=== PATIENT | female | born 1960 | race Hispanic/Latino ===

== ENCOUNTER 2017-09-14 08:38 | Emergency (ER) | payer OTHER ==
[~2017-09-14 08:38] MED LIST: CALCIUM 500 +1 EAC5 PO; LOSARTAN POTAS100 M1 PO; METFORMIN HCL750 M1 PO; MONTELUKAST SOD10 M1 PO; SYNTHROID50 MCG PO; VITAMIN B-121000 MC3 PO
--- NOTE | 2017-09-14 12:20 | ED GENERAL ADULT ---
History of Present Illness General Chief Complaint: Shoulder Injury Stated Complaint: L SHOULDER PAIN Source: patient Exam Limitations: no limitations Vital Signs & Intake/Output Vital Signs & Intake/Output Vital Signs Date Time Temp Pulse Resp B/P B/P Pulse O2 O2 Flow FiO2 Mean Ox Delivery Rate 09/14 1601 97.9 87 20 136/64 96 Room Air 09/14 1439 98.0 88 20 180/80 98 Room Air 09/14 1336 98.1 76 18 164/82 98 Room Air Room Air 09/14 1133 98.1 81 16 172/96 98 Room Air Room Air 09/14 0849 98.6 80 18 178/90 98 Room Air Allergies Coded Allergies: Penicillins (Severe, ANAPHYLAXIS 06/26/17) codeine (Severe, HYPOTENSION 06/26/17) oxycodone (DROPS BP LOW - RUSHED TO ER 06/26/17) Reconcile Medications Amlodipine Besylate 5 MG TABLET 1 TAB PO DAILY HEART (Reported) Cyclobenzaprine HCl 10 MG TABLET 1 TAB PO TID PRN pain Ibuprofen 800 MG TABLET 1 TAB PO TID PRN pain Levothyroxine Sodium (Synthroid) 50 MCG TABLET 1 TAB PO DAILY THYROID ( Reported) Losartan Potassium 100 MG TABLET 1 TAB PO DAILY HEART (Reported) Metformin HCl (Metformin HCl ER) 750 MG TAB.ER.24H 1 TAB PO DAILY DM ( Reported) Triage Note: 57 YO FEMALE TO TRIAGE WITH HX OF RA. STATES SHE WAS HAVING L SIDED NECK PAIN SINCE LAST WEEK, STATES SHE WENT TO SEE A MASSAGE THERAPIST WITHOUT ANY SUCCESS. STATES THIS AM SHE WAS ABLE TO MOVE HER NECK D/T THE PAIN. ICE PACK IN [place] FOR COMFORT. Triage Nurses Notes Reviewed? yes Onset: Abrupt Duration: week(s): (1), constant Timing: single episode today Injury Environment: home Severity: moderate, severe Severity Numbers: 9 No Modifying Factors: none LMP (ages 10-50): post menopausal, unknown : No Patient currently breastfeeds: No HPI: 57-year-old female past history of hypertension, hypothyroidism, rheumatoid arthritis presents for evaluation of pain in the left side of her neck. Patient states symptoms started about one week ago and been persistent. Pain is located in the left neck rates in the left shoulder. The pain is much worse with movement. Described as stiffness. There is no trauma or known triggering event. She's been taking naproxen without any improvement. No numbness or tingling no chest pain shortness of breath. Patient reports she has had similar episodes in the past but nothing this severe. She rates pain currently as a 10 out of 10. She presents she is unable to lay back due to pain. No other associated symptoms no rashes no fevers. (Andrzej Palacio) Past History Travel History Traveled to [place] past 21 day No Medical History Any Pertinent Medical History? 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 No (Andrzej Palacio) Review of Systems Review of Systems Constitutional: Reports: no symptoms. EENTM: Reports: no symptoms. Respiratory: Reports: no symptoms. Cardiovascular: Reports: no symptoms. GI: Reports: no symptoms. Genitourinary: Reports: no symptoms. Musculoskeletal: Reports: see HPI, back pain, joint pain, muscle pain, muscle stiffness, neck pain. Skin: Reports: no symptoms. Neurological/Psychological: Reports: no symptoms. Hematologic/Endocrine: Reports: no symptoms. Immunologic/Allergic: Reports: no symptoms. All Other Systems: Reviewed and Negative (Andrzej Palacio) Physical Exam Physical Exam General Appearance: well developed/nourished, no apparent distress, alert, awake , anxious Head: atraumatic, normal appearance Eyes: Bilateral: normal appearance, PERRL, EOMI. Ears, Nose, Throat: normal pharynx, normal ENT inspection, hearing grossly normal Neck: normal inspection, supple, limited range of motion, THERE IS TENDERNESS PALPATION OF THE LEFT-SIDED CERVICAL PARASPINOUS MUSCLES AND LEFT TRAPEZIUS MUSCLE. nO BRUISING SWELLING OR ABRASIONS RANGE OF MOTION OF THE NECK IS REDUCED DUE TO PAIN. NEUROVASCULAR SUPPLY IS INTACT. nO LYMPHADENOPATHY NO SWELLING TO THE NECK Respiratory: normal breath sounds, chest non-tender, no respiratory distress, lungs clear Cardiovascular: regular rate/rhythm, normal peripheral pulses Peripheral Pulses: 2+ radial (R), 2+ radial (L) Gastrointestinal: soft, non-tender Back: normal inspection, normal range of motion, no vertebral tenderness Extremities: normal inspection, normal range of motion, no edema Neurologic/Psych: no motor/sensory deficits, awake, alert, oriented x 3, normal gait Skin: intact, normal color, warm/dry Lymphatic: no anterior cervical khang Core Measures ACS in differential dx? No CVA/TIA Diagnosis: No Sepsis Present: No Sepsis Focused Exam Completed? No (Arthur CRAWFORD,Andrzej) Progress Differential Diagnoses I considered the following diagnoses in my evaluation of the patient: [Muscle spasm, muscle strain, fracture, cervical adenopathy, RA, osteoarthritis] Plan of Care: Patient seen and evaluated. She is here with left-sided neck and shoulder pain. Pain is very reducible with range of motion and palpation. No history of trauma there is no swelling erythema and bruising or abrasions. Vital signs are stable. Patient was medicated initially with Tylenol and cyclobenzaprine. We' ll check a CT scan of the head and neck. Patient still reported significant spasming and stiffness of her neck despite Tylenol and cycle Benzedrine. She was given a milligram of Ativan. She'll be reassessed. Patient is feeling Better after Ativan. She was able to lay down without difficulty. She was resting comfortably sleeping on reevaluation. CT scan does not show any acute findings. Patient will be given obstruction for ibuprofen as cycle Benzedrine. Advised her to rest avoid excessive physical activity. Apply heating pad. 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 Discussed return precautions patient agrees the plan. Diagnostic Imaging: Viewed by Me: CT Scan. Discussed w/RAD: CT Scan. Radiology Impression: PATIENT: FATIMAH SILVA PRESENT AGE: 57 PATIENT ACCOUNT NO: [id number] : 61 LOCATION: [facility] ORDERING PHYSICIAN: Andrzej CRAWFORD SERVICE DATE: 09/14/17 EXAM TYPE: CAT - CT CERV SPINE WO IV CONTRAST; CT HEAD WO IV CONTRAST EXAMINATION: CT HEAD WITHOUT CONTRAST CT CERVICAL SPINE WITHOUT CONTRAST CLINICAL INFORMATION: Headache, neck pain COMPARISON: None TECHNIQUE: Contiguous axial imaging was performed from the skull base to vertex without intravenous administration of contrast. Contiguous axial imaging was performed from the cervical spine and source images were reviewed along with axial reconstructions and sagittal and coronal MPRs. DLP: 925.69 mGy-cm CT HEAD: There is no evidence of acute intracranial hemorrhage or territorial infarction. No abnormal mass effect or midline shift is seen. Gallo to white matter differentiation is well preserved. No extra-axial fluid collections are identified. The ventricles are normal in size. The osseous structures and soft tissues are normal. No acute skull fracture. The mastoid air cells and visualized portions of the paranasal sinuses are well aerated. CT CERVICAL SPINE: The vertebral body height and alignment of cervical spine are within normal limits. The intervertebral disc spaces are preserved. The posterior elements are intact. There is no acute fracture or dislocation of cervical spine. The paraspinal soft tissues are unremarkable. The visualized lung apices are clear. IMPRESSION: No acute intracranial pathology. No acute fracture or dislocation of cervical spine. DICTATED BY: Mary Poe MD DATE/TIME DICTATED:09/14/171600 RN INFUSION:LES DATE/TIME TRANSCRIBED:09/14/171600 CONFIDENTIAL, DO NOT COPY WITHOUT APPROPRIATE AUTHORIZATION. <Electronically signed in Other Vendor System> Initial ED EKG: none (Andrzej Palacio) Departure Departure Disposition: HOME OR SELF CARE Condition: Stable Clinical Impression Primary Impression: Cervical strain Qualifiers: Encounter type: initial encounter Qualified Code: S16.1XXA - Strain of muscle, fascia and tendon at neck level, initial encounter Referrals: Carmina Sweeney MD (PCP/Family) Additional Instructions: Rest, avoid any lifting bending or physical activity. Tylenol ibuprofen for pain. Cyclobenzaprine is a muscle relaxer that can be used every 8 hours as needed for pain this may cause drowsiness. Make a follow-up with her primary care doctor to review all results of today's visit. Monitor since closely return with any concerns. Departure Forms: Customer Survey General Discharge Information Prescriptions: Current Visit Scripts Ibuprofen 1 TAB PO TID PRN pain #30 TAB Cyclobenzaprine HCl 1 TAB PO TID PRN pain #30 TAB (Andrzej Palacio) PA/RETAIL DEPARTMENT RESET Co-Sign Statement Statement: ED Attending supervision documentation- [] I saw and evaluated the patient. I have also reviewed all the pertinent lab results and diagnostic results. I agree with the findings and the plan of care as documented in the PA's/RETAIL DEPARTMENT RESET's documentation. [X] I have reviewed the ED Record and agree with the PA's/RETAIL DEPARTMENT RESET's documentation. [] Additions or exceptions (if any) to the PAs/RETAIL DEPARTMENT RESET's note and plan are summarized below: [] (Carlos Enrique Pelaez DO) Critical Care Note Critical Care Note Critical Care Time: non-applicable (Andrzej Palacio)
[2017-09-14] MEDS ORDERED: AMLODIPINE BESYL5 M1 PO (12:41)
[2017-09-14 16:01] VITALS: BP 136/64
--- NOTE | 2017-09-14 16:20 | CT SCAN REPORT ---
EXAMINATION: CT HEAD WITHOUT CONTRAST CT CERVICAL SPINE WITHOUT CONTRAST CLINICAL INFORMATION: Headache, neck pain COMPARISON: None TECHNIQUE: Contiguous axial imaging was performed from the skull base to vertex without intravenous administration of contrast. Contiguous axial imaging was performed from the cervical spine and source images were reviewed along with axial reconstructions and sagittal and coronal MPRs. DLP: 925.69 mGy-cm CT HEAD: There is no evidence of acute intracranial hemorrhage or territorial infarction. No abnormal mass effect or midline shift is seen. Gallo to white matter differentiation is well preserved. No extra-axial fluid collections are identified. The ventricles are normal in size. The osseous structures and soft tissues are normal. No acute skull fracture. The mastoid air cells and visualized portions of the paranasal sinuses are well aerated. CT CERVICAL SPINE: The vertebral body height and alignment of cervical spine are within normal limits. The intervertebral disc spaces are preserved. The posterior elements are intact. There is no acute fracture or dislocation of cervical spine. The paraspinal soft tissues are unremarkable. The visualized lung apices are clear. IMPRESSION: No acute intracranial pathology. No acute fracture or dislocation of cervical spine.
[2017-09-14] MEDS ORDERED: CYCLOBENZAPRINE10 M1 PO (16:47)
[2017-09-14] MEDS ORDERED: IBUPROFEN800 M1 PO (16:47)
== END 2017-09-14 16:59 ==
LOC: ERH 08:38
DX: S16.1XXA Strain of muscle, fascia and tendon at neck level, initial encounter (principal); X58.XXXA Exposure to other specified factors, initial encounter; Y92.9 Unspecified place or not applicable; Y93.9 Activity, unspecified